=== PATIENT | female | born 1975 | race Caucasian/White ===

== ENCOUNTER → 2021-07-07 16:15 | Outpatient (CLI) | payer OTHER, SELFPAY ==
--- NOTE | ~2021-07-07 | MM_ITS ---
EXAMINATION: MM screening luisa BI w keith HISTORY: Screening mammogram TECHNIQUE: Craniocaudal and mediolateral oblique 3-D tomosynthesis images were obtained and synthetic 2-D images were generated. Bilateral rotated lateral CC views. CAD analysis was submitted and interp reted. COMPARISON: No prior mammogram is available for comparison at this institution. BREAST PARENCHYMAL COMPOSITION: The breasts are extremely dense, which lowers the sensitivity of mamm ography. FINDINGS: There is no evidence of suspicious mass, calcification, or architectural distortion to sugg est malignancy in either breast. There has been no suspicious interval change. IMPRESSION: 1. No mammographic evidence of malignancy. 2. Recommend routine screening mammography in one year. BI-RADS Category 1: Negative Reviewed, dictated and finalized at location A.
== END ==
PROVIDERS: Visit Provider Obstetrics & Gynecology
DX: Z12.31 Encounter for screening mammogram for malignant neoplasm of breast (principal)
CPT/HCPCS: 77063; 77067

== ENCOUNTER 2022-07-09 00:14 | Day surgery (SDC) | payer OTHER, SELFPAY ==
[2022-06-24 13:42] VITALS: BMI 27.4
[2022-07-09 08:18] VITALS: BP 109/66; PULSE 73; RESP 19; TEMP 36.4; O2SAT 99
[2022-07-09] MEDS: LACTATED RINGERS 1,000 ML 150 ML IV CONT (08:29)
--- NOTE | 2022-07-09 08:32 | WPDANESEPPF ---
Anes - Initial Pre Proc Eval Procedure: Operation Date: 07/09/22 09:45 Proposed Procedures p Esophagogastroduodenoscopy & Colonoscopy - Peter Saldana MD Date/Time: 07/09/22 08:32 Surgeon: Peter Saldana MD Pre Op Diagnosis: constipation, indigestion Patient Data Age: 46 Gender: F Height: 1.73 m Weight: 79.2 kg Last Vital Signs Temp 97.5 F L 07/09/22 08:18 Pulse 73 07/09/22 08:18 Resp 19 07/09/22 08:18 BP 109/66 07/09/22 08:18 Pulse Ox 99 07/09/22 08:18 O2 Del Method Room Air 07/09/22 08:18 Allergies Allergy/AdvReac Type Severity Reaction Status Date / Time No Known Allergies Allergy Verified 07/09/22 08:09 Home Medications Medication Instructions Recorded Confirmed Type Vitamin B-12 1 tab-cap PO DAILY 06/24/22 07/09/22 History Vitamin C 1 tab-cap PO DAILY 06/24/22 07/09/22 History Vitamin D3 1 tab-cap PO DAILY 06/24/22 07/09/22 History alprazolam 0.25 mg tablet 0.25 mg PO DAILY 06/24/22 07/09/22 History iron 1 tab-cap PO DAILY 06/24/22 07/09/22 History Patient hx anesthesia problems: none Family hx anesthesia problems: none Results Review: All pre-operative results and documents have been reviewed as part of the pre-operative evaluation. [facility] Family History Family History (Updated 01/16/16 @ 11:47 by DOCTOR UNKNOWN) Other Diabetes mellitus Family history of arthritis Social History Social History Smoking status: Never smoker Alcohol intake: current Alcohol use details: on occasion Substance use: never Substance use type: does not use Living arrangements: with family Spiritual care concerns: No Anes - Eval Final PreProcedure Day of Procedure 07/09/22 08:32 Patient weight: normal Heart: regular rate and rhythm Lungs: clear to auscultation Airway: Mallampati scale class II Neurological: alert and oriented Last oral intake: >/= 8 hours ASA classification: II Emergent: no Anesthetic plan: proceed Anesthesia type and monitoring: general GIVS and standard monitoring Results Review: All pre-operative results and documents have been reviewed as part of the pre-operative evaluation. Informed Consent: The patient's anesthetic plan and its attendant risks and benefits were discussed with the patient/family/POA. Questions were solicited and answers provided to the satisfaction of the patient/family/POA.
--- NOTE | 2022-07-09 09:22 | WPDGICN ---
Assessment and Plan Assessment and plan (1) Family history of colon cancer in father: Code(s): Z80.0 - Family history of malignant neoplasm of digestive organs Status: Acute Assessment and Plan: Patient's father has colon cancer. Recommend follow-up colonoscopy at 5 year intervals. (2) Indigestion: Code(s): K30 - Functional dyspepsia Status: Acute Assessment and Plan: Patient reports difficulty belching. EGD is requested will be performed. Patient has multiple other complaints. Patient seen briefly prior to endoscopy would recommend longer consultation be arranged by follow-up in the office for extended consultation. (3) Constipation: Code(s): K59.00 - Constipation, unspecified Status: Acute Assessment and Plan: Patient complains of constipation yet is on no medications. Colonoscopy will be performed to evaluate this as well as for screening with her father's history of cancer. Stool softener such as Metamucil taken daily in conjunction with MiraLax on a daily or every other day basis may be beneficial. GI Consult Note Consult date/time: 07/09/22 09:22 Reason for consult: Belching and constipation. HPI: Nataliia Mendoza is a 46 year old female Presents for colonoscopy an EGD. Patient has a longstanding history of anxiety and depression. She complains of a lifelong history of difficulty belching. She will stick her finger down his throat to encourage belching. She reports no help with Gas- X. Additionally feels constipated with pellet-like stools. She denies any bleeding or weight loss. She states she used to try laxatives but no longer does. Her family history is significant that her father had malignant polyps recently identified she presents for colonoscopy an EGD today. Currently on no specific medications. Review of Systems Review of Systems: review of systems noncontributory. [facility] Family History Family History (Updated 01/16/16 @ 11:47 by DOCTOR UNKNOWN) Other Diabetes mellitus Family history of arthritis Social History Social History Smoking status: Never smoker Alcohol intake: current Alcohol use details: on occasion Substance use: never Substance use type: does not use Living arrangements: with family Spiritual care concerns: No Meds Home Medications and Allergies Home Medications Medication Instructions Recorded Confirmed Type Vitamin B-12 1 tab-cap PO DAILY 06/24/22 07/09/22 History Vitamin C 1 tab-cap PO DAILY 06/24/22 07/09/22 History Vitamin D3 1 tab-cap PO DAILY 06/24/22 07/09/22 History alprazolam 0.25 mg tablet 0.25 mg PO DAILY 06/24/22 07/09/22 History iron 1 tab-cap PO DAILY 06/24/22 07/09/22 History Allergies Allergy/AdvReac Type Severity Reaction Status Date / Time No Known Allergies Allergy Verified 07/09/22 08:09 Vital Signs Vital Signs - 24 hr 07/09/22 08:18 Temperature 97.5 F L Pulse Rate 73 Respiratory Rate 19 Blood Pressure 109/66 Pulse Oximetry 99 Oxygen Delivery Room Air Exam Narrative: Physical exam reveals patient to be alert. Vital signs stable. HEENT exam is unremarkable. Patient is anicteric. Lungs are clear to auscultation and percussion. Heart is without murmur or extra sounds. Abdominal exam bowel sounds are present soft nontender with no organomegaly. Digital external rectal exam normal.
--- NOTE | 2022-07-09 09:37 | SUR.OPER ---
EGD start 939 end 942, Colonoscopy start 948 end 1001
[2022-07-09 10:03] VITALS: BP 90/58; PULSE 73; RESP 13; O2SAT 100
[2022-07-09 10:13] VITALS: BP 105/67; PULSE 75; RESP 22; O2SAT 100
[2022-07-09 10:23] VITALS: BP 103/61; PULSE 66; RESP 22; O2SAT 100
== END 2022-07-09 10:46 | disposition home or self-care (01) ==
PROVIDERS: PCP Nurse Practitioner Family; Visit Provider Internal Medicine Gastroenterology
PROC: 0DJ08ZZ Inspection of Upper Intestinal Tract, Via Natural or Artificial Opening Endoscopic (ICD-10-PCS; CPT 43235; principal; 2022-07-09 09:45)
DX: K59.00 Constipation, unspecified (principal); Z80.0 Family history of malignant neoplasm of digestive organs; K29.60 Other gastritis without bleeding
CPT/HCPCS: 45378; 43239; 87081; J2704; J7120

== ENCOUNTER → 2022-07-19 11:48 | Outpatient (CLI) | payer OTHER, SELFPAY ==
--- NOTE | ~2022-07-19 | MM_ITS ---
EXAMINATION: MM screening luisa BI w keith HISTORY: Screening TECHNIQUE: Craniocaudal and mediolateral oblique 3-D tomosynthesis images were obtained and synthetic 2-D images were generated. CAD analysis was submitted and interpreted. COMPARISON: No prior mammogram is available for comparison at this institution. Comparison to multipl e prior studies sequentially, with oldest reviewed study dated 07/11/2019. BREAST PARENCHYMAL COMPOSITION: The breasts are extremely dense, which lowers the sensitivity of mamm ography FINDINGS: There is no evidence of suspicious mass, calcification, or architectural distortion to sugg est malignancy in either breast. There has been no suspicious interval change. IMPRESSION: 1. No mammographic evidence of malignancy. 2. Recommend routine screening mammography in one year. BI-RADS Category 1: Negative Reviewed, dictated and finalized at location A.
== END ==
PROVIDERS: PCP Obstetrics & Gynecology; Visit Provider Obstetrics & Gynecology
DX: Z12.31 Encounter for screening mammogram for malignant neoplasm of breast (principal)
CPT/HCPCS: 77063; 77067

== ENCOUNTER 2022-08-23 12:37 | Outpatient (CLI) | payer OTHER, SELFPAY ==
[2022-08-27 10:24] LABS: Gliadin AB, IgG <1.0 U/mL (<15.0); TTG IGA AB <1.0 U/mL (<15.0)
== END 2022-08-23 12:38 | disposition home or self-care (01) ==
PROVIDERS: PCP Family Medicine; Visit Provider Nurse Practitioner
DX: R14.0 Abdominal distension (gaseous) (principal)
CPT/HCPCS: 36415; 83516; 86255

== ENCOUNTER → 2022-11-19 15:46 | Outpatient (CLI) | payer OTHER, SELFPAY ==
--- NOTE | ~2022-11-19 | MR_ITS ---
EXAMINATION: MR wrist LT wo con DATE: 11/19/2022 16:41 INDICATION: Left wrist pain. TECHNIQUE: Magnetic resonance imaging (MRI) of the wrist was performed without intravenous contrast. Sequences performed include coronal T1-weighted FSE, coronal PD-weighted FS FSE, axial PD-weighted FS FSE, axial PD-weighted FSE, sagittal PD-weighted FSE, and sagittal PD-weighted FS FSE. COMPARISON: Left wrist radiographs 11/09/2022 FINDINGS: Intrinsic ligaments: The scapholunate and lunotriquetral ligaments are normal. Triangular fibrocartilage complex (TFCC): The triangular fibrocartilage is normal. Extensor wrist: The extensor tendons are normal. Flexor wrist: The flexor tendons are normal. Median nerve is normal. Guyon's canal: The ulnar nerve is normal. Bones/other: Bone alignment is normal. No fracture. The cartilage is normal. There is a 1.4 x 0.8 x 0.6 cm ganglio n cyst arising from the area of dorsal component of scapholunate ligament. A skin marker overlies thi s area. IMPRESSION: 1. 1.4 cm ganglion cyst arising from the area of dorsal component of scapholunate ligament. Reviewed, dictated and finalized at location A. UI DEVELOPER IMPRESSION: 1. 1.4 cm ganglion cyst arising from the area of dorsal component of scapholuna te ligament.
== END ==
PROVIDERS: PCP Nurse Practitioner Family; Visit Provider Nurse Practitioner Family
DX: M67.432 Ganglion, left wrist (principal)
CPT/HCPCS: 73221

== ENCOUNTER 2022-12-09 08:11 | Emergency (ER) | payer OTHER, SELFPAY ==
--- NOTE | 2022-12-09 08:17 | ED.URI ---
HPI - URI/Sore Throat General Chief Complaint: Upper Respiratory Infection Stated Complaint: sorethroat,cough Time Seen by Provider: 12/09/22 08:16 Source: patient Mode of arrival: ambulatory Limitations: no limitations History of Present Illness HPI Narrative: Anne is a 46-year-old female patient presenting to the clinic today with complaints of sore throat, sneezing, cough, ear pain, and nasal congestion x3 days. She reports no known fever or chills. Has had exposure to her son who tested positive for strep. Cough is productive at times bringing up clear phlegm. MD elicited complaint: cough, sore throat, rhinorrhea, nasal congestion and other (Ear pain) Related Data Home Medications Medication Instructions Recorded Confirmed alprazolam 0.25 mg tablet 0.25 mg PO DAILY 06/24/22 12/09/22 Allergies Allergy/AdvReac Type Severity Reaction Status Date / Time No Known Allergies Allergy Verified 12/09/22 08:27 Review of Systems Review of Systems: Pertinent positives per HPI. Patient denies any fever, chills, rash, headache, visual changes, dizziness, shortness of breath, chest pain, palpitations, nausea, vomiting, diarrhea, constipation, abdominal pain, or any urinary issues. [facility] Past Medical History Medical History Abdominal distention Bloating Endometriosis determined by laparoscopy 2007 Esophageal dysmotility Ganglion, left wrist Irritable bowel syndrome with constipation Left shoulder pain Left wrist pain Mass of left wrist Right shoulder pain Surgical History Surgical History H/O section 2007 H/O epicondylectomy R. Elbow (Lateral) - 2014 L. Elbow (Lateral) - 2017 Family History Family History Other Brain cancer Depression Diabetes mellitus Family history of arthritis Hypertension Social History Social History Smoking status: Never smoker Alcohol intake: current Alcohol use details: on occasion Substance use: never Substance use type: does not use Living arrangements: with family Spiritual care concerns: No Comments At the time of my signature, I reviewed and agree with the nursing past medical, surgical, social, and family history. There is no relevant family history pertinent to the patient complaint. Exam Narrative: General: Well-developed, well nourished, in no apparent distress Head: Normocephalic, atraumatic Eyes: Pupils equally round and reactive to light bilaterally, EOM intact, sclera and conjunctive clear, no discharge, lids normal Ears: TMs intact, dull, retracted, ear canals clear, no drainage, grossly hearing normal. Nose: Nares patent, clear nasal discharge, mild inflammation, no sinus tenderness. Mouth: Oral pharynx without lesions or masses, good dentition, MMM. Oropharynx red Neck: Supple, trachea midline, no enlargement of anterior or posterior cervical nodes, no thyroid masses or goiter palpable. Cardio: Regular rate and rhythm, s1 and s2 normal, no murmur appreciated. Resp: Clear to auscultation bilaterally, no rhonchi, rales, wheezing or rubs Course Course Emergency Course: Portions of this record may have been created with voice recognition software. Level of Care: Express Care Visit Vital Signs Vital signs: Vital signs reviewed MDM - URI/Sore Throat MDM Narrative Medical decision making narrative: At the time of visit patient is resting comfortably on the exam table. Strep and COVID testing was completed and were negative in the clinic today. I suspect patient has URI/pharyngitis/viral syndrome. Will send a prescription for some prednisone as she does have some eustachian tube dysfunction and this will also help with congestion. Supportive measures were discussed with
[2022-12-09 08:22] VITALS: BP 108/77; PULSE 84; RESP 18; TEMP 36.3; O2SAT 100
== END 2022-12-09 08:59 | disposition home or self-care (01) ==
PROVIDERS: Emergency Provider Nurse Practitioner Family
DX: J06.9 Acute upper respiratory infection, unspecified (principal); J02.9 Acute pharyngitis, unspecified; B34.9 Viral infection, unspecified; H69.93 Unspecified Eustachian tube disorder, bilateral; Z20.822 Contact with and (suspected) exposure to COVID-19
CPT/HCPCS: 87081; 87426; 87880; 99213; C9803; G0463

== ENCOUNTER → 2023-10-17 10:26 | Outpatient (CLI) | payer OTHER, SELFPAY ==
--- NOTE | ~2023-10-17 | MM_ITS ---
EXAMINATION: MM screening luisa BI w keith HISTORY: Screening TECHNIQUE: Craniocaudal and mediolateral oblique 3-D tomosynthesis images were obtained and synthetic 2-D images were generated. CAD analysis was submitted and interpreted. COMPARISON: Comparison to multiple prior studies sequentially, with oldest reviewed study dated 06/20. BREAST PARENCHYMAL COMPOSITION: The breasts are extremely dense, which lowers the sensitivity of mamm ography FINDINGS: There is no evidence of suspicious mass, calcification, or architectural distortion to sugg est malignancy in either breast. There has been no suspicious interval change. IMPRESSION: 1. No mammographic evidence of malignancy. 2. Recommend routine screening mammography in one year. BI-RADS Category 1: Negative Reviewed, dictated and finalized at location A. [employer]
== END ==
PROVIDERS: PCP Obstetrics & Gynecology; Visit Provider Obstetrics & Gynecology
DX: Z12.31 Encounter for screening mammogram for malignant neoplasm of breast (principal)
CPT/HCPCS: 77063; 77067

== ENCOUNTER 2024-11-26 12:33 | Outpatient (CLI) | payer OTHER, SELFPAY ==
--- NOTE | ~2024-11-26 | MM_ITS ---
EXAMINATION: MM screening luisa BI w keith HISTORY: Screening mammogram TECHNIQUE: Craniocaudal and mediolateral oblique 3-D tomosynthesis images were obtained and synthetic 2-D images were generated. CAD analysis was submitted and interpreted. COMPARISON: 10/17/2023, 07/19/2022, 07/07/2021 BREAST PARENCHYMAL COMPOSITION:Dense: The breasts are extremely dense, which lowers the sensitivity o f mammography. FINDINGS: No suspicious mass, calcification, or architectural distortion are identified in either arslan ast to suggest malignancy. There has been no suspicious interval change. IMPRESSION: No mammographic evidence of malignancy. Recommend routine screening mammography in one year. BI-RADS Category 1: Negative Reviewed, dictated and finalized at location .
== END 2024-11-26 12:34 | disposition home or self-care (01) ==
PROVIDERS: PCP Obstetrics & Gynecology; Visit Provider Obstetrics & Gynecology
DX: Z12.31 Encounter for screening mammogram for malignant neoplasm of breast (principal)
CPT/HCPCS: 77063; 77067